=== PATIENT | male | born 1960 | race Caucasian/White ===

== ENCOUNTER 2022-01-10 08:00 | Emergency (ER) ==
[2022-01-10] MEDS ORDERED: Ketorolac 30 MG/ML SDV IM ONE (16:00)
== END 2022-01-10 16:15 | disposition home or self-care (01) ==
LOC: LB.ED 08:00
DX: S20.211A Contusion of right front wall of thorax, initial encounter (principal); W18.39XA Other fall on same level, initial encounter
CPT/HCPCS: 96372; 99283; J1885